=== PATIENT | male | born 1960 | race African-American/Black ===

== ENCOUNTER 2025-05-20 01:16 | Emergency (ER) | payer MEDICARE ==
[2025-05-20] MEDS ORDERED: Ondansetron PF 4 MG/2 ML Vial ONE ×2 (01:38→03:45)
[2025-05-20 02:06] LABS: ALT (SGPT) 15 U/L (Less than 45); AST (SGOT) 37 U/L (11-34); Albumin 4.7 g/dL (3.1-4.5); Alkaline Phosphatase 81 U/L (40-110); Anion Gap 25 mmol/L (10-20); BUN (Urea Nitrogen) 13 mg/dL (8.4-25.7); Bilirubin, Total 0.4 mg/dL (0.3-1.2); Calc. Creatinine Clearance 0 mL/min (70-130); Calcium 10.5 mg/dL (7.8-10.44); Carbon Dioxide 20 mmol/L (23-31); Chloride 94 mmol/L (98-107); Globulin 4.7 g/dL (2.4-3.5); Glucose 123 mg/dL (80-115); Potassium 4.0 mmol/L (3.5-5.1); Sodium 135 mmol/L (136-145)
[2025-05-20 02:23] LABS: Hematocrit 43.7 % (42.0-52.0); Hemoglobin 15.6 g/dL (14.0-18.0); MDiff Complete? YES; Mean Corpuscular Hemoglobin 28.5 pg (27.0-31.0); Mean Corpuscular Volume 79.9 fl (78.0-98.0); Platelet Adequacy Comment Appears Adequate; Platelet Count 404 10x3/uL (130-400); Red Blood Cell (RBC) Count 5.47 mill/uL (4.70-6.10); White Blood Cell (WBC) Count 8.5 10x3/uL (4.8-10.8)
[2025-05-20 03:15] LABS: Glucose, Urine (Dipstick) Negative (Negative); Leukocyte Negative (Negative); Protein, Urine (Dipstick) 30 mg/dL (Neg-Trace); Specific Gravity, Urine 1.020 (1.005-1.030)
[2025-05-20 03:17] LABS: Bacteria/HPF None Seen HPF (None Seen); CAUTI Indications for Culture Pelvic or flank pain; RBC/HPF 0-3 HPF (0-3); WBC/HPF None Seen HPF (0-3)
[2025-05-20 03:18] LABS: Urine Culture Reflex No No
[2025-05-20 03:24] LABS: Cocaine Metabolite Screen Negative (Negative); THC/Cannabinoid Screen PRELIM POSITIVE (Negative); Tricyclic Screen Negative (Negative)
[2025-05-20] MEDS ORDERED: Mag-Al Plus 1200/1200/120 MG (30 mL) UDCUP ONE (03:41)
[2025-05-20] MEDS ORDERED: Lidocaine Viscous Sol 2% 15 ml UD Cup ONE (03:41)
[2025-05-20] MEDS ORDERED: Iopamidol 370 76% 100 ML VIAL ONE (10:02)
== END 2025-05-20 04:43 | disposition home or self-care (01) ==
LOC: BURERS 01:16
DX: A08.4 Viral intestinal infection, unspecified (principal); K80.20 Calculus of gallbladder without cholecystitis without obstruction; I10 Essential (primary) hypertension; Z79.899 Other long term (current) drug therapy
CPT/HCPCS: 74177; 80053; 80306; 81001; 83690; 85025; 93005; 96361; 96374; 96375; 96376; J2270; J2405; Q9967